=== PATIENT | female | born 1990 | race African-American/Black ===

== ENCOUNTER 2019-05-15 22:51 | Emergency (ER) | payer MEDICAID ==
[~2019-05-15] VITALS: Ht 175.3 cm; Wt 86.2 kg
[2019-05-15] MEDS ORDERED: Activated Charcoal 50gm/240ml Btl ORAL ONE ×2 (23:00→23:10)
--- NOTE | 2019-05-15 23:00 | NUR ---
ED Nurse Note: Recieved pt RUSTY from home, w/PD, on 5150 hold for DTS for suicidal attempt, pt states she took about 20 ibuprofen tablets because ehs wants to kill herself because she needs the microchips out of her head, pt is alert and oriented x 4, very calm and cooperative, cries when speaking about auditory hallucinatioons that tell her to do so, denies any homicidal ideations or visual hallucinations, pt immediately placed on suicidal precautions, changed clothing, has patent salinel ock, placed on cardiac monitoring and able to see pt constantly, MD immediately at bedside, will closely monitor and follow unit protocols for pt.
--- NOTE | 2019-05-15 23:20 | NUR ---
ED Nurse Note: Pt belongings list completed, all items in locker #2 and listed.
[2019-05-15 23:29] LABS: HEMATOCRIT 39.8 % (37.0-47.0); HEMOGLOBIN 13.3 G/DL (12.0-16.0); MEAN CORPUSCULAR VOLUME 91 FL (80-99); PLATELET COUNT 350 K/UL (150-450); RED BLOOD COUNT 4.37 M/UL (4.20-5.40); RED CELL DISTRIBUTION WIDTH 12.9 % (11.6-14.8); WHITE BLOOD COUNT 6.8 K/UL (4.8-10.8)
[2019-05-15 23:37] LABS: ANION GAP 10 mmol/L (5-15); BLOOD UREA NITROGEN 5 mg/dL (7-18); CALCIUM 9.1 MG/DL (8.5-10.1); CARBON DIOXIDE 26 MMOL/L (21-32); CHLORIDE 107 MMOL/L (98-107); CREATININE 0.8 MG/DL (0.55-1.30); POTASSIUM 3.7 MMOL/L (3.5-5.1); SODIUM 143 MMOL/L (136-145)
[2019-05-15 23:41] LABS: ALANINE AMINOTRANSFERASE 20 U/L (12-78); ALBUMIN 3.9 G/DL (3.4-5.0); ALKALINE PHOSPHATASE 47 U/L (46-116); ASPARTATE AMINO TRANSFERASE 16 U/L (15-37); BILIRUBIN,DIRECT < 0.1 MG/DL (0.0-0.3); BILIRUBIN,TOTAL 0.4 MG/DL (0.2-1.0)
[2019-05-16] VITALS (8 sets, daily range): BP systolic 109–125; BP diastolic 67–86
--- NOTE | 2019-05-16 01:00 | NUR ---
ED Nurse Note: Pt remains very calm and cooperaative, took oral charcoal without incident, pt did have emesis x 1, small amount of food contents, pt medicated and recieving iv fluids, remains on suicidal precautions and hold, will continue to closely monitor.
--- NOTE | 2019-05-16 02:30 | NUR ---
ED Nurse Note: Pt awakened and assisted to bathroom, ambulates well with steady gait, no acute changes or distress noted, remains on suicidal precautions, denies cp or any pain, iv site patent and fluids infusing as ordered, pt remains calm and cooperative, fluids offered, pt assisted back to bed and sleeping quietly, will continue to closely monitor while waiting for medical clearance.
--- NOTE | 2019-05-16 03:24 | Emergency Room Report ---
History of Present Illness General Chief Complaint: Overdose Source: Patient (Fareed Lazaro MD) Present Illness HPI The patient presents via EMS after ingesting a full bottle of prescription strength ibuprofen. She did this in attempt to harm herself. She does take Abilify and has a history of schizophrenia. She has been feeling depressed and overwhelmed recently. She is complaining about nausea at this time. There is no vomiting after ingestion. She took the pills approximately 45 minutes ago. She denies any other ingestion including alcohol or other drugs. She has had episodes of suicidal ideation in the past and is seeing a therapist at this time. No fevers, chills, sore throat, chest pain, palpitations, vomiting, diarrhea, dysuria, abdominal pain, shortness of breath, joint pain, rashes, visual changes , headache. She does not believe she is at this time. (Fareed Lazaro MD) Allergies: Coded Allergies: No Known Allergies (Unverified , 05/15/19) Patient History Past Medical History: see triage record Social History: Reports: smoking; Denies: alcohol use, drug use Social History Narrative From home Last Menstrual Period: n/a Reviewed Nursing Documentation: PMH: Agreed; PSxH: Agreed (Fareed Lazaro MD) Nursing Documentation-PMH Past Medical History: No History, Except For (Fareed Lazaro MD) Review of Systems All Other Systems: negative except mentioned in HPI (Fareed Lazaro MD) Physical Exam Vital Signs Date Time Temp Pulse Resp B/P (MAP) Pulse Ox O2 Delivery O2 Flow Rate FiO2 05/15/19 22:47 98.2 90 18 146/70 (95) 98 Room Air Eyes: bilateral eye PERRL, bilateral eye other - Slight exophthalmos ENT: moist mucus membranes Neck: supple Respiratory: chest non-tender, lungs clear, normal breath sounds Cardiovascular #1: regular rate, rhythm Cardiovascular #2: 2+ radial (L) Gastrointestinal: normal bowel sounds, soft, non-distended, no guarding, no rebound, tenderness - The gastric Genitourinary: no CVA tenderness Musculoskeletal: back normal, digits/nails normal, gait/station normal, normal range of motion Neurologic: oriented x3, DTRs symmetric, grossly normal Suicide Risk Assessment: Suicidal Ideation: Yes Had intent to initiate attempt: Yes Pt's plan for suicide attempt: Yes Has means to complete attempt: Yes Skin: no rash (Fareed Lazaro MD) Medical Decision Making Diagnostic Impression: Primary Impression: Drug overdose Qualified Codes: T50.902A - Poisoning by unspecified drugs, medicaments and biological substances, intentional self-harm, initial encounter ER Course The patient presents after suicide gesture of an ingesting of full bottle of prescription strength ibuprofen. Differential includes ibuprofen overdose, suicide gesture, elect light imbalance amongst others. Due to the recent ingestion the patient will undergo gastric lavage and administration of charcoal. In addition she will be evaluated with labs. She will receive IV hydration. We will follow her clinically. Pepcid will be administered as well as antiemetic. She will need to have psychiatric evaluation. Placed the patient on a 5150. Labs unremarkable. Patient resting without agitation. No abdominal pain or nausea at this time. She will need to have psychiatric placement or reevaluation in the morning. Medically cleared for psychiatric evaluation. 2 AM Given Abilify. Calm. Signed out to .Dr. Wilkerson. Laboratory Tests Test 05/15/19 22:49 05/15/19 22:50 05/15/19 23:00 Arterial Blood pH 7.391 (7.350-7.450) Arterial Blood Partial Pressure CO2 32.3 mmHg (35.0-45.0) L Arterial Blood Partial Pressure O2 92.3 mmHg (75.0-100.0) Arterial Blood HCO3 19.2 mmol/L (22.0-26.0) L Arterial Blood Oxygen Saturation 96.8 % (95-100) Arterial Blood Base Excess -4.8 (-2-2) L Tal Test Positive Urine Opiates Screen Negative (NEGATIVE) Urine Barbiturates Screen Negative (NEGATIVE) Phencyclidine (PCP) Screen Negative (NEGATIVE) Pending Urine Amphetamines Screen Negative (NEGATIVE) Urine Benzodiazepines Screen Negative (NEGATIVE) Urine Cocaine Screen Negative (NEGATIVE) Urine Marijuana (THC) Screen Negative (NEGATIVE) White Blood Count 6.8 K/UL (4.8-10.8) Red Blood Count 4.37 M/UL (4.20-5.40) Hemoglobin 13.3 G/DL (12.0-16.0) Hematocrit 39.8 % (37.0-47.0) Mean Corpuscular Volume 91 FL (80-99) Mean Corpuscular Hemoglobin 30.4 PG (27.0-31.0) Mean Corpuscular Hemoglobin Concent 33.4 G/DL (32.0-36.0) Red Cell Distribution Width 12.9 % (11.6-14.8) Platelet Count 350 K/UL (150-450) Mean Platelet Volume 6.7 FL (6.5-10.1) Neutrophils (%) (Auto) % (45.0-75.0) Lymphocytes (%) (Auto) % (20.0-45.0) Monocytes (%) (Auto) % (1.0-10.0) Eosinophils (%) (Auto) % (0.0-3.0) Basophils (%) (Auto) % (0.0-2.0) Sodium Level 143 MMOL/L (136-145) Potassium Level 3.7 MMOL/L (3.5-5.1) Chloride Level 107 MMOL/L (98-107) Carbon Dioxide Level 26 MMOL/L (21-32) Anion Gap 10 mmol/L (5-15) Blood Urea Nitrogen 5 mg/dL (7-18) L Creatinine 0.8 MG/DL (0.55-1.30) Estimate Glomerular Filtration Rate > 60 mL/min (>60) Glucose Level 91 MG/DL (74-106) Calcium Level 9.1 MG/DL (8.5-10.1) Total Bilirubin 0.4 MG/DL (0.2-1.0) Direct Bilirubin < 0.1 MG/DL (0.0-0.3) Aspartate Amino Transferase (AST) 16 U/L (15-37) Alanine Aminotransferase (ALT) 20 U/L (12-78) Alkaline Phosphatase 47 U/L (46-116) Total Protein 7.8 G/DL (6.4-8.2) Albumin 3.9 G/DL (3.4-5.0) Opiates Screen Pending Oxycodone Level Pending Blood Methadone Screen Pending Blood Propoxyphene Screen Pending Acetaminophen Level < 2 MCG/ML (10-30) L Blood Barbiturates Screen Pending Amphetamines Screen Pending Benzodiazepines Screen Pending Blood Cocaine/Metabolite Screen Pending Marijuana (THC) Screen Pending Blood Drug Screen Comment Pending (Fareed Lazaro MD) ER Course Reevaluation 1:36 PM, patient remains medically stable pending psychiatric evaluation by Dr. Farhadi Patient states she is no longer suicidal states she instantly regretted taking the ibuprofen wants to speak with psychiatrist to be voluntary however she is currently on a hold Pending psychiatric evaluation (Joaquin Wilkerson MD) Rhythm Strip Diag. Results EP Interpretation: yes Rhythm: NSR, no PVC's, no ectopy (Fareed Lazaro MD) Last Vital Signs Date Time Temp Pulse Resp B/P (MAP) Pulse Ox O2 Delivery O2 Flow Rate FiO2 05/16/19 09:48 98.5 74 20 117/86 98 Room Air Status: improved (Fareed Lazaro MD) Reevaluation Time: 22:49 Reevaluation Impression Patient remained stable while in the emergency department after I assumed care approximately 2 PM. No acute issues raised during the shift. She is awaiting psychiatric evaluation by Dr. Lees in the morning as it was unable to be completed during the afternoon. (Valentin Godfrey MD) Disposition: XFER TO PSYCH HOSP/UNIT Condition: Stable Referrals: NOT CHOSEN IPA/,REFERRING (PCP) Fareed Lazaro MD May 16, 2019 03:24 Joaquin Wilkerson MD May 16, 2019 13:37 Valentin Godfrey MD May 16, 2019 22:51
--- NOTE | 2019-05-16 03:40 | NUR ---
ED Nurse Note: Pt continues to sleep quietly, arouses easilyt o verbal stimuli, v/s stable, iv site patent, denies pain, pt room has been changed, report given to Lc Hernandez to resume care, pt remains on suicidal precautions and hold, continuing to wait for medical clearance and psych placement, nad noted during pt room change.
--- NOTE | 2019-05-16 03:51 | NUR ---
ED Nurse Note: Recieved report from NEGIN Velasco. Pt moved to tx 1. Pt resting in bed with eyes closed, non-labored breathing, no signs of distress. Pt offered water and toiletting, declined at this time, denies pain. Will continue to monitor
--- NOTE | 2019-05-16 05:45 | NUR ---
ED Nurse Note: Pt ambulated to bathroom with steady gait. Pt answers questions and is calm and cooperative. Pt now resting in bed with eyes closed, will continue to monitor
--- NOTE | 2019-05-16 06:28 | NUR ---
ED Nurse Note: family contact info Pt's sister Britni [phone] pt's mother Morelia [phone]
--- NOTE | 2019-05-16 07:07 | NUR ---
HAND-OFF: Report given to NEGIN Gomes.
--- NOTE | 2019-05-16 07:10 | NUR ---
ED Nurse Note: Pt resting on her bed with no distress. Breakfast food at the bedside. Waiting for psychiatric evaluation. Primary RN as sitter.
[2019-05-16] MEDS ORDERED: ABILIFY10 MG ORAL (07:31)
--- NOTE | 2019-05-16 08:19 | NUR ---
ED Nurse Note: Salicylate blood specimen sent down to lab.
--- NOTE | 2019-05-16 09:30 | NUR ---
ED Nurse Note: Sitter Hailey at the bed side. Pt is calm and cooperative. Pt consumed 50 % of her breakfast.
--- NOTE | 2019-05-16 10:00 | NUR ---
patient ios awake alert oriented denies any suicidal thoughts . patient is on 5150 continue to monitor also work on to place patient on psych facility
--- NOTE | 2019-05-16 10:54 | NUR ---
ED Nurse Note: Mom and sitter Hailey at the bed side. Apple juice provided per pt request.
--- NOTE | 2019-05-16 12:00 | NUR ---
ED Nurse Note: Lunch provided to patient. No acute distress. Still waiting for Dr Lees for evaluation.
[2019-05-16 12:26] LABS: APPEARANCE,URINE CLEAR; BILIRUBIN, URINE NEGATIVE (NEGATIVE); COLOR,URINE PALE YELLOW; GLUCOSE, URINE (UA) NEGATIVE (NEGATIVE); KETONES,URINE NEGATIVE (NEGATIVE); LEUKOCYTE ESTERASE ,URINE 1+ (NEGATIVE); NITRITE,URINE NEGATIVE (NEGATIVE); PH,URINE 6 (4.5-8.0); PROTEIN,URINE 2+ (NEGATIVE); UROBILINOGEN,URINE NORMAL MG/DL (0.0-1.0)
--- NOTE | 2019-05-16 12:30 | NUR ---
waiting for dr tena to come and evaluate the patient
--- NOTE | 2019-05-16 13:42 | NUR ---
ED Nurse Note: Hailey sitter at the bed side.
--- NOTE | 2019-05-16 15:00 | NUR ---
patient and her family is very upset due just being here waiting for psych bed avilable no psych unit has no bed avilable still waiting for dr tena to come and evaluate the patient
--- NOTE | 2019-05-16 15:53 | NUR ---
ED Nurse Note: Hailey the sitter still at the bed side. Pt is resting on bed with respirations even and unlabored.
--- NOTE | 2019-05-16 17:40 | NUR ---
ED Nurse Note: Dinner provided to patient and consumed 100 %. Sitter Hailey and mom at the bed side.
--- NOTE | 2019-05-16 18:18 | NUR ---
Per nursing dials supervisor-no sitter available for tonight.
--- NOTE | 2019-05-16 18:53 | NUR ---
HAND-OFF: Report given to Erin KAM.
--- NOTE | 2019-05-16 19:08 | NUR ---
ED Nurse Note: Patient's IV access was DC at 1910. Patient AAO x4, VSS at this time, skin is warm to touch. Patient denyes any pain, and SI. Stated that wants to go home, take shower.
--- NOTE | 2019-05-16 20:00 | NUR ---
ED Nurse Note: Shaw juice was provided. Patient is calm cooperative. VSS at this time.
--- NOTE | 2019-05-16 22:10 | NUR ---
ED Nurse Note: Patient was offered pillows and fresh seats but states that she is okay, patient states that she wants to sleep
--- NOTE | 2019-05-16 23:09 | NUR ---
ED Nurse Note: Patient is crying, asking if she can go home.
--- NOTE | 2019-05-17 00:06 | NUR ---
ED Nurse Note: Patient is the bed sleeping, no acute disstress noticed.
[2019-05-17 00:30] VITALS: BP 125/79
[2019-05-17 03:43] VITALS: BP 130/76
--- NOTE | 2019-05-17 05:28 | NUR ---
ED Nurse Note: Patient's belongings is in the locker # 1, not # 2.
--- NOTE | 2019-05-17 05:28 | NUR ---
ED Nurse Note: Patient is awake, cooperative, calm, VSS at this time, asked to call her mom.
--- NOTE | 2019-05-17 07:03 | NUR ---
HAND-OFF: Report given to NEGIN Sorenson.
[2019-05-17 07:10] VITALS: BP 121/73
--- NOTE | 2019-05-17 07:22 | NUR ---
Patient in treatment room bed 2 sitter present. Patient states she is ready to go home. States she took Motrin tablets every 30 minutes and exceeded the recommended dose purposefully as she was tired of hwearing the voices. Previously disgnosed wityh schizophrenia in 2000. States that she has never intentionally overdosed before. Patient has eaten breakfast. Alert and orientated x4. Patient has a 7 year okld son - currently with grandmother and grandmother aware of patients presence at the ER. Patient states that she was brought to ER by her sister. Patient currently sitting in bed. Vitals checked and within normal limits. Awaiting review by the DR. Patient denies any auditory hallucinations at present. She states that when the voices were present they were telling her she is too tall, ugly, fat and other derogatory remarks.
--- NOTE | 2019-05-17 08:17 | NUR ---
ED Nurse Note: Patient asking when the Dr might attend. I have advised the patient that I am not aware of what time the Dr would attend. The patient states she feel like she is being punished. I have reassured the patient that it is not the intention of wishing to punish her. I have advised the patient that once the doctor attends she can talk with the doctor and then herself and the doctor can determine the next step. Reassured the patient that the doctor is aware of her waiting to be seen. Patient requested to use the telephone to call her mother. Patient dialled but no response Cuco advised the patient that she may try to call again when she is ready. Anxiety level charted as moderate as patient becoming anxious and wanting to be seen so that she can go home. Patient has paced the room a few times. Patient appears less anxious following reassurance and discussion of next steps. Currently sitting on bed.
--- NOTE | 2019-05-17 09:32 | NUR ---
ED Nurse Note: Patient remians in room bed 2. Recieved call back from mother after leaving VM. Remains calm and cooperative and less anxious. Awaiting Dr review. Morning medicationms given as prescribed.
--- NOTE | 2019-05-17 10:53 | NUR ---
PATIENT HAS BEEN ACCEPTED AT [facility] AT 1300. FOR REPORT CALL [phone]
[2019-05-17 11:14] VITALS: BP 108/72
--- NOTE | 2019-05-17 12:31 | NUR ---
ED Nurse Note: Sitter remains present. Patient accompanied by mother. Conversing in room. Patient provided with meal for lunch and ingested the same. Bowels opened mid morning - moderate amount. No complaints of pain. Patient awaiting transfer to [facility]. Patient and mother aware of same. Patient belongings in locker 1 to go with the patient. Vital signs rechecked and as recorded. Denies suicidal ideation or auditory hallucinations.
--- NOTE | 2019-05-17 13:02 | NUR ---
ED Nurse Note: Reports given to NEGIN Pak at [facility].
--- NOTE | 2019-05-17 14:04 | NUR ---
ER DISCHARGE NOTE: Patient is cleared to be discharged per ERMD, pt is aox4, on room air, with stable vital signs. , pt was able to verbalize understanding , pt id band and iv site removed without complications. pt is able to ambulate with steady gait. pt took all belongings. Transferred with EMT transport to [facility]. Handover given to Mellisa.
[2019-05-17 14:06] VITALS: BP 108/72
== END 2019-05-17 14:00 ==
LOC: EDBD 22:51 → EMR 23:20
DX: T39.312A Poisoning by propionic acid derivatives, intentional self-harm, initial encounter (principal); Y92.9 Unspecified place or not applicable; F20.9 Schizophrenia, unspecified; F17.200 Nicotine dependence, unspecified, uncomplicated
CPT/HCPCS: 36415; 36600; 80048; 80076; 80101; 80196; 80307; 80329; 81003; 81025; 82803; 85025; 87086; 96361; 96374; 96375; J2405; S0028; Z7502; 80301; 99284